=== PATIENT | female | born 2000 | race Caucasian/White ===

== ENCOUNTER 2020-08-06 12:28 | Inpatient (IN) | payer BC ==
[~2020-08-06] VITALS: Ht 167.6 cm; Wt 154.0 kg
[2020-08-06] MEDS ORDERED: CHARCOAL/SORBITOL 50 GM/240 ML ONE (12:42)
--- NOTE | 2020-08-06 12:47 | NUR ---
TRIAGE COMPLETED. TIRE CENTER MANAGER AND DR TOSCANO INFORMED OF AMOUNTS OF MEDS REPORTED TAKEN. PT MOVED TO TRAUMA 4. MOTHER AT BS. REPORT TO JACLYN SALGUERO.
--- NOTE | 2020-08-06 12:49 | NUR ---
per provider poc to place ng tube with irrigation and suction. the poc to place activated charcoal.
[2020-08-06] MEDS ORDERED: CHARCOAL/AQUEOUS 25 GM/120 ML PO ONE (13:00)
--- NOTE | 2020-08-06 13:05 | NUR ---
assumed care of pt. report from Steffen SALGUERO pt BIB mother after suicide attempt at home today. per report, pt states that she took 80 200mg ibuprofen and 100 500mg tylenol at about 1130 today in an attempt to harm herself pt denies taking any other drugs, denies ETOH intake. pt is A&O x4. calm and cooperative. pt states that she is feeling depressed and that there was no particular event today that made her OD, but that she has been thinking about it for some time. pt reports that immediately after taking the pills she notified her family of her actions and they brought her here pt reports that she has a hx of depression but has not been on any meds in over 9 months because she does not currently have a primary MD. pt reports that she has a previous suicide attempt by OD of similar medications about 18 months ago. pt denies hallucinations/delusions. states that she no longer wants to harm herself. pt mother at bedside pt has no injuries, denies any injuries. states that she has not had anything to eat today. denies vomiting [employer]. no vomiting noted at this time. pt belonings, including her phone, her clothing and her earrings have been removed and given to her mother at bedside to agrees to assume responsibility for items. pt agrees with plan of care pt is currenty in T4, sitter present for safety
[2020-08-06 13:15] LABS: BASOPHILS % (AUTO) 1 % (0-1); EOSINOPHILS % (AUTO) 1 % (1-7); LYMPHOCYTES % (AUTO) 21 % (22-44); MEAN CORPUSCULAR HEMOGLOBIN 24.6 pg (27.0-34.8); MEAN CORPUSCULAR HGB CONC 33.1 g/dL (32.4-35.8); MEAN PLATELET VOLUME 7.4 fL (7.4-10.4); MONOCYTES % (AUTO) 6 % (2-9); NEUTROPHILS % (AUTO) 71 % (42-75); PLATELET COUNT 393 x10^3/uL (130-400); RED BLOOD COUNT 5.66 x10^6/uL (3.82-5.3)
--- NOTE | 2020-08-06 13:25 | NUR ---
CXR at bedside
[2020-08-06 13:26] LABS: ALANINE AMINOTRANSFERASE 21 U/L (12-78); ANION GAP 10 mmol/L (5-15); CALCIUM 8.9 mg/dL (8.5-10.1); CHLORIDE 108 mmol/L (98-107)
[2020-08-06 13:30] LABS: ALKALINE PHOSPHATASE 103 U/L (45-117); BILIRUBIN,TOTAL 0.4 mg/dL (0.2-1.0); CREATININE 0.84 mg/dL (0.55-1.02); TOTAL PROTEIN 8.4 g/dL (6.4-8.2)
[2020-08-06 13:33] LABS: SALICYLATE LEVEL < 1.7 mg/dL (2.8-20.0)
--- NOTE | 2020-08-06 14:00 | NUR ---
per Dr. Rene, pt to have irrigation and aspiration through NG tube to assess for pill fragments. pt and mother at bedside have been updated on POC. procedure initiated
--- NOTE | 2020-08-06 14:30 | NUR ---
there have been some pill fragments noted on aspiration, Dr. Rene notified and at bedside for recheck. pt to have gastric lavage
[2020-08-06] MEDS ORDERED: LORazepam 2 MG/ML, 1ML ONE ×2 (14:48→17:20)
[2020-08-06] MEDS ORDERED: ACETYLCYSTEINE IV ONE (15:00)
[2020-08-06] MEDS ORDERED: DEXTROSE 5% IV ONE (15:00)
[2020-08-06] MEDS ORDERED: LORazepam 2 MG/ML, 1ML IVPush ONE ×2 (15:00→16:00)
[2020-08-06] MEDS ORDERED: ACETYLCYSTEINE 15,000 MG in DEXTROSE 5% 200 ML IV ONE (15:00)
--- NOTE | 2020-08-06 15:00 | NUR ---
gastric lavage setup ready at bedside. pt agrees to POC. procedure intiated
--- NOTE | 2020-08-06 15:30 | NUR ---
pt breannaure has been completed. irrigation to clear. small amount of pill fragments noted on drainage. tolerated well by pt. Addendum: 08/06/20 at 1604 by THERESA procedure has been completed. irrigation until clear. small amount of pill fragments noted on drainage. tolerated fair by pt
[2020-08-06] MEDS ORDERED: SODIUM CHLORIDE 0.9% 1,000ML IVBOLUS ONE (16:00)
--- NOTE | 2020-08-06 16:05 | NUR ---
Steffen RN at [facility] fr US guided IV placement with lab draw pelon Salomon [employer] has been to bedside for initial contact and evaluation
--- NOTE | 2020-08-06 16:10 | NUR ---
pt is drowsy, ativan held at this time. pt aware
--- NOTE | 2020-08-06 16:19 | NUR ---
pt positioning for comfort. resting in position of comfort with eyes closed
--- NOTE | 2020-08-06 16:20 | NUR ---
Dr. Rene at bedside for recheck
[2020-08-06 16:36] LABS: SALICYLATE LEVEL < 1.7 mg/dL (2.8-20.0)
--- NOTE | 2020-08-06 16:50 | NUR ---
infusion completed. pt up to bedside commode to attempt to give urine sample. pt tearful
[2020-08-06] MEDS ORDERED: ACETYLCYSTEINE 5,000 MG in DEXTROSE 5% 500 ML IV ONE (17:00)
--- NOTE | 2020-08-06 17:00 | NUR ---
pt states that she is unable to urinate at this time. +vomiting 200cc. pt has some small mild red raman on her cheeks that her mother states are not normal for her. no oral swelling noted. no SOB. no difficulty breathing speaking or swallowing
--- NOTE | 2020-08-06 17:05 | NUR ---
pt back to bed. OK to hang 2nd dose or acetylcystine per pharmacy pt positioning for comfort. fresh linens and gown applied
--- NOTE | 2020-08-06 17:28 | NUR ---
Dr. Rene has been to bedside for recheck. after repeat Tylenol level not detectable, Acetylcistine infusion stopped per VO at bedside. pt and mother updated on POC. awaiting admit orders and bed assignment. sitter at bedside for safety
--- NOTE | 2020-08-06 17:30 | NUR ---
NS infusion completed
--- NOTE | 2020-08-06 17:33 | NUR ---
spoke to Scottie from poison control for update on condition
--- NOTE | 2020-08-06 18:00 | NUR ---
hospitalist at bedside for eval
--- NOTE | 2020-08-06 18:15 | NUR ---
report to Digna SALGUERO
--- NOTE | 2020-08-06 18:24 | NUR ---
pt resting in position of comfort. no apparent distress. no new c/o. siter present for safety
[2020-08-06] MEDS ORDERED: BISACODYL 10 MG SUPP PR PRN (18:30)
[2020-08-06] MEDS ORDERED: POLYETHYLENE GLYCOL 17 GM PACKET PO PRN (18:30)
[2020-08-06] MEDS ORDERED: ONDANSETRON ODT 4 MG PO PRN (18:30)
[2020-08-06] MEDS: SODIUM CHLORIDE 0.9% 1,000 ML IV SCH (20:43)
[2020-08-06] MEDS ORDERED: ACETYLCYSTEINE 10,000 MG in DEXTROSE 5% 1,000 ML IV ONE (21:00)
[2020-08-07 01:24] VITALS: BP 127/87
[2020-08-07] MEDS: SODIUM CHLORIDE 0.9% 1,000 ML IV SCH ×3 (03:18→14:30)
[2020-08-07 05:37] LABS: BASOPHILS % (AUTO) 1 % (0-1); EOSINOPHILS % (AUTO) 1 % (1-7); LYMPHOCYTES % (AUTO) 25 % (22-44); MEAN CORPUSCULAR HEMOGLOBIN 24.6 pg (27.0-34.8); MEAN PLATELET VOLUME 7.6 fL (7.4-10.4); MONOCYTES % (AUTO) 7 % (2-9); NEUTROPHILS % (AUTO) 66 % (42-75); PLATELET COUNT 326 x10^3/uL (130-400); RED BLOOD COUNT 5.22 x10^6/uL (3.82-5.3); RED CELL DISTRIBUTION WIDTH 15.3 % (9.6-15.2)
[2020-08-07 05:51] LABS: CHLORIDE 112 mmol/L (98-107)
[2020-08-07 06:02] LABS: ALANINE AMINOTRANSFERASE 21 U/L (12-78); ALBUMIN 3.1 g/dL (3.4-5.0); ALKALINE PHOSPHATASE 87 U/L (45-117); ANION GAP 7 mmol/L (5-15); BILIRUBIN,TOTAL 0.5 mg/dL (0.2-1.0); CREATININE 0.75 mg/dL (0.55-1.02); TOTAL PROTEIN 7.3 g/dL (6.4-8.2)
[2020-08-07 06:05] LABS: AMPHETAMINE SCREEN, URINE Negative (Negative); BARBITURATE SCREEN, URINE Negative (Negative); BENZODIAZEPINE SCREEN, URINE Negative (Negative); CANNABINOID SCREEN, URINE Negative (Negative); COCAINE SCREEN, URINE Negative (Negative); METHADONE SCREEN, URINE Negative (Negative); OPIATE SCREEN, URINE Negative (Negative)
[2020-08-07 06:49] VITALS: BP 138/91
[2020-08-07] MEDS ORDERED: SENNA/DOCUSATE TABLET PO SCH (09:00)
[2020-08-07 13:26] VITALS: BP 127/80
[2020-08-07] MEDS ORDERED: ONDANSETRON 2MG/ML, 2ML IVPush PRN (13:30)
[2020-08-07] MEDS ORDERED: FERR324T23 PO (18:22)
== END 2020-08-07 16:53 | DRG 918 ==
LOC: ED 15:58 → 4WST 18:51
PROVIDERS: ADMIT Internal Medicine; ATTEND Internal Medicine
DX: T39.1X2A Poisoning by 4-Aminophenol derivatives, intentional self-harm, initial encounter (principal); Z68.43 Body mass index [BMI] 50.0-59.9, adult; E66.01 Morbid (severe) obesity due to excess calories; F12.90 Cannabis use, unspecified, uncomplicated; F32.9 Major depressive disorder, single episode, unspecified; F41.9 Anxiety disorder, unspecified; Z83.3 Family history of diabetes mellitus; Z91.5 Personal history of self-harm; Y92.89 Other specified places as the place of occurrence of the external cause
CPT/HCPCS: 36415; 74018; 80053; 80299; 80307; 80320; 80329; 82728; 83540; 83550; 85025; 93005; 96374; 99291; G0378; J0132; J7060; G0480; J2060; J7030

== ENCOUNTER 2020-08-07 11:42 | Inpatient (IN) | payer BC ==
[~2020-08-07] VITALS: Ht 165.1 cm; Wt 68.8 kg
[2020-08-07] MEDS ORDERED: POLYETHYLENE GLYCOL 17 GM PACKET PO PRN (12:30)
[2020-08-07] MEDS ORDERED: BISACODYL 10 MG SUPP PR PRN (12:30)
[2020-08-07] MEDS ORDERED: DOCUSATE 100 MG CAPSULE PO PRN (12:30)
[2020-08-07] MEDS ORDERED: ONDANSETRON ODT 4 MG PO PRN (12:30)
[2020-08-07] MEDS ORDERED: ACETAMINOPHEN 325 MG TABLET PO PRN (12:30)
[2020-08-07] MEDS ORDERED: PLEASE ENTER HEIGHT AND WEIGHT MC SCH (17:00)
[2020-08-07 17:34] VITALS: BP 130/85
[2020-08-07] MEDS ORDERED: FERR324T23 PO (18:22)
[2020-08-07 19:25] VITALS: BP 135/90
[2020-08-08 06:09] LABS: CHOL/HDL RATIO 4.1; CHOLESTEROL, TOTAL 155 mg/dL (140-239); FREE T4 (FREE THYROXINE) 1.21 ng/dL (0.76-1.46); HDL CHOL % 25 % (28-40); HDL CHOLESTEROL (DIRECT) 38 mg/dL (40-60); LDL CHOLESTEROL,CALCULATED 100 mg/dL (54-169); LDL/HDL RATIO 2.6 (0.5-3.0); TRIGLYCERIDES 87 mg/dL (50-200); VLDL CHOLESTEROL 17 mg/dL (0-25)
[2020-08-08 07:18] VITALS: BP 129/89
[2020-08-08] MEDS: FERROUS GLUCONATE 324 MG TABLET PO SCH (16:22)
[2020-08-08] MEDS: SERTRALINE 50MG TABLET PO SCH (16:22)
[2020-08-08 19:57] VITALS: BP 129/87
[2020-08-09 07:38] VITALS: BP 131/86
[2020-08-09] MEDS: FERROUS GLUCONATE 324 MG TABLET PO SCH ×2 (08:47→16:32)
[2020-08-09] MEDS: SERTRALINE 50MG TABLET PO SCH (08:47)
[2020-08-09 19:29] VITALS: BP 137/85
[2020-08-10 07:25] VITALS: BP 130/82
[2020-08-10] MEDS: FERROUS GLUCONATE 324 MG TABLET PO SCH ×2 (07:45→16:22)
[2020-08-10] MEDS: SERTRALINE 50MG TABLET PO SCH (07:45)
[2020-08-10 20:07] VITALS: BP 123/86
[2020-08-11 07:45] VITALS: BP 121/86
[2020-08-11] MEDS: FERROUS GLUCONATE 324 MG TABLET PO SCH ×2 (07:59→16:35)
[2020-08-11] MEDS: SERTRALINE 50MG TABLET PO SCH (07:59)
[2020-08-11 19:24] VITALS: BP 125/85
[2020-08-12] MEDS: SERTRALINE 50MG TABLET PO SCH (07:43)
[2020-08-12] MEDS: FERROUS GLUCONATE 324 MG TABLET PO SCH ×2 (07:44→16:40)
[2020-08-12 07:49] VITALS: BP 131/82
[2020-08-12] MEDS ORDERED: FERR324T23 PO (14:24)
[2020-08-12] MEDS ORDERED: SERT50TA28 PO (14:24)
[2020-08-12 19:34] VITALS: BP 114/80
[2020-08-13 07:11] VITALS: BP 118/84
[2020-08-13] MEDS: SERTRALINE 50MG TABLET PO SCH (07:57)
[2020-08-13] MEDS: FERROUS GLUCONATE 324 MG TABLET PO SCH (07:58)
== END 2020-08-13 13:00 | disposition home or self-care (01) | DRG 885 ==
LOC: 3E 16:58
PROVIDERS: ADMIT Psychiatry & Neurology Psychosomatic Medicine; ATTEND Psychiatry & Neurology Psychosomatic Medicine
DX: F33.2 Major depressive disorder, recurrent severe without psychotic features (principal); E66.01 Morbid (severe) obesity due to excess calories; E61.1 Iron deficiency; F41.9 Anxiety disorder, unspecified; Z20.822 Contact with and (suspected) exposure to COVID-19; R00.0 Tachycardia, unspecified; Z79.899 Other long term (current) drug therapy; Z83.3 Family history of diabetes mellitus; Z91.5 Personal history of self-harm; Z68.25 Body mass index [BMI] 25.0-25.9, adult
CPT/HCPCS: 36415; 71045; 80061; 84439; 84443; 84703; 87426; 93005